=== PATIENT | male | born 1990 | race American Indian/Alaskan Native ===

== ENCOUNTER 2017-12-24 18:44 | Emergency (ER) | payer BC, OTHER ==
[2017-12-24 18:44] VITALS: BMI 31.3
[2017-12-24 19:13] VITALS: BP 130/87; PULSE 77; RESP 20; TEMP 98.1; O2SAT 98
[2017-12-24] MEDS ORDERED: cefTRIAXone (Rocephin) 250 mg Inj IM STA (20:09)
[2017-12-24 20:26] LABS: SQUAMOUS EPITHIAL < 1 /hpf (0-5); URINE BACTERIA OCC (<OCC); URINE BILIRUBIN NEGATIVE (NEGATIVE); URINE BLOOD NEGATIVE (NEGATIVE); URINE CLARITY Clear (Clear); URINE COLOR Yellow (YELLOW); URINE GLUCOSE (UA) NORMAL (Normal); URINE LEUKOCYTE ESTERASE TRACE Leu/uL (Negative); URINE NITRATE NEGATIVE (NEGATIVE); URINE PROTEIN NEGATIVE (NEGATIVE)
--- NOTE | 2017-12-24 20:49 | C.PDOC ---
History Of Present Illness 27 yo male c/o penile discharge for 4 days associated with dysuria. Also c/o right sided back pain for "years". Notes he has been evaluated for the back pain various times , last with CT at [facility] [place], [place] and diagnosed with gastritis. No changes in symptoms. Worse with movement. No change in sensation, weakness, urinary or bowel incontinence, testicular pain, abdominal pain, n/v or fever. Pt has a h/o STI symptoms and notes it feels the same way. Notes recent intercourse with new partner unprotected. Time Seen by Provider: 12/24/17 19:38 Chief Complaint (Nursing): Male Genitourinary History Per: Patient History/Exam Limitations: no limitations Onset/Duration Of Symptoms: Days Current Symptoms Are (Timing): Still Present Past Medical History Vital Signs: Last Vital Signs Temp 98.1 F 12/24/17 19:10 Pulse 77 12/24/17 19:10 Resp 20 12/24/17 21:10 BP 130/87 12/24/17 19:10 Pulse Ox 98 12/24/17 21:04 - Medical History PMH: Asthma, Sexually Transmitted Disease Denies: Chronic Kidney Disease Family History: States: Unknown Family Hx - Social History Hx Tobacco Use: No Hx Alcohol Use: No Hx Substance Use: No - Immunization History Hx Tetanus Toxoid Vaccination: No Hx Influenza Vaccination: No Hx Pneumococcal Vaccination: No Review Of Systems Except As Marked, All Systems Reviewed And Found Negative. Genitourinary: Positive for: Dysuria, Penile Discharge Musculoskeletal: Positive for: Back Pain Physical Exam - Physical Exam Appears: Well, Non-toxic, No Acute Distress Skin: Normal Color, Warm, Dry Head: Atraumatic, Normacephalic Eye(s): bilateral: Normal Inspection, PERRL, EOMI Nose: Normal Oral Mucosa: Moist Neck: Normal, Normal ROM, Supple Chest: Symmetrical Cardiovascular: Rhythm Regular Respiratory: Normal Breath Sounds, No Accessory Muscle Use Gastrointestinal/Abdominal: Normal Exam, Soft, No Tenderness Back: Normal Inspection Male Genital: No Testicular Tenderness, No Testicular Swelling, Circumcised, Other ((+) clear white discharge) Extremity: Normal ROM Neurological/Psych: Oriented x3, Normal Speech ED Course And Treatment O2 Sat by Pulse Oximetry: 98 Progress Note: Rocephin and Zithromycin ordered. Case discussed with Dr Rader who evaluated UA and agreed upon plan and treatment. Disposition - Disposition Referrals: Salinas Bhat MD [Staff Provider] - Disposition: HOME/ ROUTINE Disposition Time: 21:02 Condition: STABLE Additional Instructions: Follow up with your doctor for further evaluation of you chronic back pain. Practice safe sex; always use condoms. Return to the ER if you develop fever, vomiting, testicular pain or swelling, worsening of symptoms or if you have any other concerns. Instructions: Urethritis Forms: [employer] (Niuean) - Clinical Impression Clinical Impression: Urethritis, Sexually transmitted infectious disease
== END 2017-12-24 21:09 | disposition home or self-care (01) ==
LOC: C.ER 18:44
DX: N34.2 Other urethritis (principal); A64 Unspecified sexually transmitted disease
CPT/HCPCS: 81001; 87086; 87491; 87591; 96372; 99284; J0696

== ENCOUNTER 2018-04-06 00:41 | Emergency (ER) | payer BC, MEDICAID, OTHER ==
[2018-04-06 00:42] VITALS: BMI 31.3
[2018-04-06 00:52] VITALS: TEMP 98.7; O2SAT 100
--- NOTE | 2018-04-06 00:54 | C.PDOC ---
History Of Present Illness 27 year old male presents to the ED for evaluation of penile discharge. Patient states he had similar complaints and was teated for an STD 2-3 weeks ago. Patient states both him and his partner were treated, however penile discharge returned. Patient denies sexual intercourse, fever, chills, nausea, vomit, dysuria. Time Seen by Provider: 04/06/18 00:53 Chief Complaint (Nursing): Abdominal Pain History Per: Patient History/Exam Limitations: no limitations Onset/Duration Of Symptoms: Days Current Symptoms Are (Timing): Still Present Location Of Pain/Discomfort: Diffuse Radiation Of Pain To:: None Quality Of Discomfort: "Pain" Associated Symptoms: Urinary Symptoms Exacerbating Factors: None Alleviating Factors: None Recent travel outside of the [place]: No Additional History Per: Patient Past Medical History Reviewed: Historical Data, Nursing Documentation, Vital Signs Vital Signs: Last Vital Signs Temp 98.7 F 04/06/18 00:48 Pulse 79 04/06/18 00:48 Resp 17 04/06/18 00:48 BP 127/79 04/06/18 00:48 Pulse Ox 100 04/06/18 01:13 - Medical History PMH: Asthma, Sexually Transmitted Disease Denies: Chronic Kidney Disease Surgical History: No Surg Hx Family History: States: Unknown Family Hx - Social History Hx Tobacco Use: No Hx Alcohol Use: Yes Hx Substance Use: No - Immunization History Hx Tetanus Toxoid Vaccination: No Hx Influenza Vaccination: No Hx Pneumococcal Vaccination: No Review Of Systems Constitutional: Negative for: Fever, Chills Cardiovascular: Negative for: Chest Pain Respiratory: Negative for: Shortness of Breath Gastrointestinal: Negative for: Nausea, Vomiting Genitourinary: Positive for: Penile Discharge Musculoskeletal: Negative for: Back Pain Skin: Negative for: Rash Neurological: Negative for: Weakness Psych: Negative for: Anxiety Physical Exam - Physical Exam Appears: Non-toxic, No Acute Distress Skin: Warm, Dry Gastrointestinal/Abdominal: Soft, No Tenderness, No Distention, No Guarding, No Rebound Back: Normal Inspection Male Genital: No Testicular Tenderness, No Testicular Swelling, No Inguinal Tenderness, No Scrotal Swelling, Circumcised, Other (clear penile discharge ) Extremity: No Swelling Neurological/Psych: Oriented x3, Normal Speech Gait: Steady ED Course And Treatment O2 Sat by Pulse Oximetry: 100 (ON RA) Pulse Ox Interpretation: Normal Progress Note: Plan: - Zithromax 1,000 mg PO. - Rocephin 250 mg PO Medical Decision Making Medical Decision Making: Upon provider reevaluation patient is feeling better, is medically stable, and requires no further treatment in the ED at this time. Patient will be discharged home with Rx for doxy . Counseling was provided and all questions were answered regarding diagnosis and need for follow up with dr presley. There is agreement to discharge plan. Return if symptoms persist or worsen. Disposition Counseled Patient/Family Regarding: Studies Performed, Diagnosis, Need For Followup, Rx Given - Disposition Referrals: Karri Presley MD [Staff Provider] - Disposition: HOME/ ROUTINE Disposition Time: 00:53 Condition: FAIR Prescriptions: Doxycycline Hyclate 100 mg PO BID #42 capsule Instructions: Sexually-Transmitted Diseases (DC) Forms: [employer] (Estonian) - Clinical Impression Clinical Impression: Sexually transmitted infectious disease - Scribe Statement The provider has reviewed the documentation as recorded by the Scribe Philipp Pena All medical record entries made by the Scribe were at my direction and personally dictated by me. I have reviewed the chart and agree that the record accurately reflects my personal performance of the history, physical exam, medical decision making, and the department course for this patient. I have also personally directed, reviewed, and agree with the discharge instructions and disposition.
[2018-04-06] MEDS ORDERED: cefTRIAXone (Rocephin) 250 mg Inj IM STA (01:06)
[2018-04-06 01:42] VITALS: BP 122/75; PULSE 78; RESP 18
[2018-04-06 01:50] LABS: SQUAMOUS EPITHIAL < 1 /hpf (0-5); URINE BILIRUBIN NEGATIVE (NEGATIVE); URINE BLOOD NEGATIVE (NEGATIVE); URINE CLARITY Clear (Clear); URINE COLOR Yellow (YELLOW); URINE GLUCOSE (UA) NORMAL (Normal); URINE LEUKOCYTE ESTERASE NEG Leu/uL (Negative); URINE PROTEIN NEGATIVE (NEGATIVE)
== END 2018-04-06 01:41 | disposition home or self-care (01) ==
LOC: C.ER 00:41
DX: A64 Unspecified sexually transmitted disease (principal)
CPT/HCPCS: 81001; 87491; 87591; 96372; 99284; J0696